=== PATIENT | male | born 1990 | race Hispanic/Latino ===

== ENCOUNTER 2016-11-03 17:26 | Emergency (ER) | payer MEDICAID, OTHER ==
[2016-11-03 17:26] VITALS: BMI 23.0
[2016-11-03 17:57] VITALS: BP 133/87; PULSE 70; RESP 18; TEMP 98.4; O2SAT 100
[2016-11-03 19:19] LABS: BASO # 0.1 K/uL (0.0-0.2); BASO % 0.6 % (0.0-2.0); EOS % 0.2 % (0.0-4.0); HEMATOCRIT 44.7 % (35.0-51.0); LYMPH # 2.2 K/uL (1.0-4.3); LYMPH % 24.9 % (20.0-40.0); MEAN CELL VOLUME 96.5 fl (80.0-94.0); MEAN CORPUSCULAR HEMOGLOBIN 32.4 pg (27.0-31.0); MEAN CORPUSCULAR HGB CONC 33.5 g/dL (33.0-37.0); MEAN PLATELET VOLUME 9.8 fl (7.2-11.7); MONO # 0.5 K/uL (0.0-0.8); MONO % 6.3 % (0.0-10.0); NEUT # 5.9 K/uL (1.8-7.0); RED CELL DISTRIBUTION WIDTH 14.2 % (11.5-14.5); WHITE BLOOD COUNT 8.7 K/uL (4.8-10.8)
--- NOTE | 2016-11-03 19:32 | ED PDOC ---
- Laboratory Results Result Diagrams: 11/03/16 19:07 11/03/16 19:07 - ECG O2 Sat by Pulse Oximetry: 100 (RA) Pulse Ox Interpretation: Normal - CT Scan/US CT Head Other Rad Studies (CT/US): Interpreted By Me, Read By Radiologist, Radiology Report Reviewed Medical Decision Making Medical Decision Makin:00 Patient transferred over to provider by Dr. Kelsey. Pending workup, 20:56 Urine toxicity screen came back positive for opiates, benzodiazepines, cocaine, and marijuana. pt aware of need for outpt detox. with pt permission mom informed of results as well. 21:18 CT Head w/o Contrast Results FINDINGS: LIMITATIONS: Exam is somewhat limited by mild streak/motion artifact. BRAIN: No significant acute abnormality identified. No acute hemorrhage seen within the brain. No acute extraaxial fluid collections visualized. No evidence of significant intracranial mass effect. Normal aguila-white matter differentiation. VENTRICLES: No evidence of significant hydrocephalus. BONES/JOINTS: No acute fractures or other acute bony abnormality noted. SOFT TISSUES: No acute abnormality of the visualized soft tissues is seen. SINUSES: Visualized paranasal sinuses appear clear. MASTOID AIR CELLS: Mastoid air cells appear clear. IMPRESSION: - No acute findings seen within the brain. - See above for remaining findings. spoke to Dr Lucero neurology health information internship who states that pt can follow up as outpt but no need for antiepileptics now. instructed pt to not drive until cleared by neurology. pt to follow up as outpt with neurology. referral given as well as referral to medical clinic and [facility]. pt verbalizes understanding Scribe Attestation: Documented by Kory Yanez, acting as a scribe for Yue Jacinto MD. Provider Scribe Attestation: All medical record entries made by the Scribe were at my direction and personally dictated by me. I have reviewed the chart and agree that the record accurately reflects my personal performance of the history, physical exam, medical decision making, and the department course for this patient. I have also personally directed, reviewed, and agree with the discharge instructions and disposition. Disposition Counseled Patient/Family Regarding: Studies Performed, Diagnosis, Need For Followup - Clinical Impression Clinical Impression: First time seizure, Polysubstance abuse - POA Present On Arrival: None - Disposition Referrals: [facility] [Outside] [facility] [Outside] Pietro Phoenix MD [Staff Provider] - Edy Lucero MD [Medical Doctor] - Disposition: Routine/Home Disposition Time: 21:40 Condition: GOOD Additional Instructions: follow up with NEUROLOGIST in 1-2 days for further evaluation also follow up for drug detox do not drive or operate machinery until cleared by neurologist return to the ED with any worsening or concerning symptoms. Instructions: Polysubstance Abuse (ED), New-Onset Seizure in Adults (ED)
--- NOTE | 2016-11-03 19:36 | ED PDOC ---
HPI: Seizure Time Seen by Provider: 11/03/16 18:46 Chief Complaint (Nursing): Seizure Chief Complaint (Provider): Seizure History Per: Patient History/Exam Limitations: no limitations Recent Seizure Activity Began: Days Ago: ("last night") Number Of Seizures: One Length Of Seizures (Duration): Minutes (seizure lasted 2 minutes) Quality Of Seizure: Generalized Precipitating Factor(s): None Associated Symptoms: Other (loss of consciousness, generalized weakness, head injury inclusive of a mild right-sided headache, and a right-sided knee injury) Post-ictal Period: Yes (brief postictal period) Severity: Moderate Additional Complaint(s): Trav Bradley is a 26 year old male, with no pertinent past medical history, who presents to the emergency department for a seizure, inclusive of uncontrollable shaking and foaming from the mouth, that the patient experienced last night. Patient reports that his seizure lasted for approximately 2 minutes. Associated loss of consciousness, generalized weakness, a head injury, inclusive of a mild right-sided headache, and a right-sided knee injury are currently present. Denies a history of seizures in the past. PMD: none specified Past Medical History Reviewed: Historical Data, Nursing Documentation, Vital Signs Vital Signs: Last Vital Signs Temp 98.4 F 11/03/16 17:54 Pulse 70 11/03/16 17:54 Resp 18 11/03/16 17:54 BP 133/87 11/03/16 17:54 Pulse Ox 100 11/04/16 05:38 - Medical History PMH: Back Problems, Fractures (L leg), Seizures - Surgical History Surgical History: Tonsillectomy - Family History Family History: States: Other Other Family History: FHx of seizures - Social History Current smoker - smoking cessation education provided: Yes Alcohol: Social Drugs: Cannabis - Immunization History Hx Tetanus Toxoid Vaccination: No Hx Influenza Vaccination: No Hx Pneumococcal Vaccination: No - Home Medications Home Medications: Ambulatory Orders Medication Instructions Recorded Ibuprofen [Motrin Tab] 800 mg PO Q6H 10/03/15 Cyclobenzaprine [Cyclobenzaprine 1 tab PO Q8H PRN #25 tab 09/25/16 HCl] Naproxen [Naprosyn] 1 tab PO BID PRN #25 tab 09/25/16 oxyCODONE/Acetaminophen [Percocet 1 tab PO Q4H PRN #10 tab 09/25/16 5/325 mg Tab] traMADol [Ultram] 1 tab PO PRN PRN 09/25/16 - Allergies Allergies/Adverse Reactions: Allergies Allergy/AdvReac Type Severity Reaction Status Date / Time No Known Allergies Allergy Verified 09/25/16 08:48 Review of Systems ROS Statement: Except As Marked, All Systems Reviewed And Found Negative Musculoskeletal: Positive for: Hand Pain (right-sided knee pain), Other (head pain due to injury) Neurological: Positive for: Weakness, Seizures, Headache (mild, right-sided), Other (loss of consciousness) Physical Exam - Reviewed Nursing Documentation Reviewed: Yes Vital Signs Reviewed: Yes - Physical Exam Appears: Positive for: Well, Non-toxic, No Acute Distress Head Exam: Positive for: ATRAUMATIC, NORMAL INSPECTION, NORMOCEPHALIC Skin: Positive for: Normal Color, Warm, Dry Eye Exam: Positive for: Normal appearance, EOMI, PERRL Neck: Positive for: Normal, Painless ROM, Supple Cardiovascular/Chest: Positive for: Regular Rate, Rhythm. Negative for: Murmur Respiratory: Positive for: Normal Breath Sounds. Negative for: Respiratory Distress Gastrointestinal/Abdominal: Positive for: Normal Exam, Soft. Negative for: Tenderness Back: Positive for: Normal Inspection. Negative for: L CVA Tenderness, R CVA Tenderness Extremity: Positive for: Normal ROM. Negative for: Tenderness Neurologic/Psych: Positive for: Alert, Oriented. Negative for: Motor/Sensory Deficits - Laboratory Results Result Diagrams: 11/03/16 19:07 11/03/16 19:07 - ECG O2 Sat by Pulse Oximetry: 100 (RA) Pulse Ox Interpretation: Normal Medical Decision Making Medical Decision Makin:46 Initial Impression: New onset seizures, head injury Differential Diagnoses include, but are not limited to, primary seizures versus drug-induced secondary seizures. Initial Plan: * CT Head w/o Contrast * EKG * Alcohol Serum * CBC * CMP * Urine Drug Screen * Magnesium * Reevaluation Scribe Attestation: Documented by Kory Yanez, acting as a scribe for Fredy Kelsey MD. Provider Scribe Attestation: All medical record entries made by the Scribe were at my direction and personally dictated by me. I have reviewed the chart and agree that the record accurately reflects my personal performance of the history, physical exam, medical decision making, and the department course for this patient. I have also personally directed, reviewed, and agree with the discharge instructions and disposition. Disposition - Clinical Impression Clinical Impression: First time seizure, Polysubstance abuse - Patient ED Disposition Is Patient to be Admitted: Transfer of Care Counseled Patient/Family Regarding: Studies Performed, Diagnosis - Disposition Referrals: [facility] [Outside] [facility] [Outside] Pietro Phoenix MD [Staff Provider] - Edy Lucero MD [Medical Doctor] - Disposition: Transfer of Care Disposition Time: 19:00 Condition: GOOD Additional Instructions: follow up with NEUROLOGIST in 1-2 days for further evaluation also follow up for drug detox do not drive or operate machinery until cleared by neurologist return to the ED with any worsening or concerning symptoms. Instructions: Polysubstance Abuse (ED), New-Onset Seizure in Adults (ED) Patient Signed Over To: Yue Jacinto Handoff Comments: pending CT, labs, and final dispo
[2016-11-03 19:39] LABS: ALB/GLOB RATIO 1.8 (1.0-2.1); ALCOHOL SERUM < 10 mg/dl (0-10); ALKALINE PHOSPHATASE 53 U/L (38-126); ALT/SGPT 17 U/L (21-72); AST/SGOT 27 U/L (17-59); BILIRUBIN,TOTAL 1.2 mg/dl (0.2-1.3); BLOOD UREA NITROGEN 12 mg/dl (9-20); CALCIUM 9.7 mg/dL (8.4-10.2); CARBON DIOXIDE 26 mmol/L (22-30); CHLORIDE 105 mmol/L (98-107); GFR AFRICAN-AMERICAN > 60; GLUCOSE,RANDOM 84 mg/dL (75-110); MAGNESIUM 2.1 MG/DL (1.6-2.3); POTASSIUM 4.4 MMOL/L (3.6-5.0); SODIUM 142 mmol/l (132-148); TOTAL PROTEIN 7.7 G/DL (6.3-8.2)
--- NOTE | 2016-11-03 21:19 | CT ---
EXAM: CT Head Without Intravenous Contrast CLINICAL HISTORY: 26 years old, male; Signs and symptoms; Other: Poss seizure; Patient HX: Patient states: He had a seizure yesterday, for the 1st time TECHNIQUE: Axial computed tomography images of the head/brain without intravenous contrast. This CT exam was performed using one or more of the following dose reduction techniques: automated exposure control, adjustment of the mA and/or kV according to patient size, and/or use of iterative reconstruction technique. Coronal and sagittal reformatted images were created and reviewed. EXAM DATE/TIME: 11/03/2016 6:54 PM COMPARISON: No relevant prior studies available. FINDINGS: LIMITATIONS: Exam is somewhat limited by mild streak/motion artifact. BRAIN: No significant acute abnormality identified. No acute hemorrhage seen within the brain. No acute extraaxial fluid collections visualized. No evidence of significant intracranial mass effect. Normal aguila-white matter differentiation. VENTRICLES: No evidence of significant hydrocephalus. BONES/JOINTS: No acute fractures or other acute bony abnormality noted. SOFT TISSUES: No acute abnormality of the visualized soft tissues is seen. SINUSES: Visualized paranasal sinuses appear clear. MASTOID AIR CELLS: Mastoid air cells appear clear. IMPRESSION: - No acute findings seen within the brain. - See above for remaining findings.
--- NOTE | 2016-11-04 09:25 | CARD ---
APPROVED REPORT EKG Measurement Heart [id number] <Conclusion> Sinus bradycardia Otherwise normal ECG
== END 2016-11-03 22:26 | disposition home or self-care (01) ==
LOC: H.ER 17:26
DX: R56.9 Unspecified convulsions (principal); S09.90XA Unspecified injury of head, initial encounter; W19.XXXA Unspecified fall, initial encounter; Y92.89 Other specified places as the place of occurrence of the external cause; F19.10 Other psychoactive substance abuse, uncomplicated